=== PATIENT | male | born 1975 | race Two or more races ===

== ENCOUNTER 2017-05-02 18:29 | Inpatient (IN) | payer MEDICAID ==
[~2017-05-02] VITALS: Ht 177.8 cm; Wt 69.4 kg
[~2017-05-02 18:29] MED LIST: CEPH-357 PO; NO HOME MEDS
[2017-05-02 19:15] LABS: BASOPHILS % (AUTO) 0.3 % (0-1); EOSINOPHILS # (AUTO) 0.1 X10'3 (0-0.9); EOSINOPHILS % (AUTO) 0.7 % (0-6); HEMATOCRIT 45.7 % (42.0-52.0); HEMOGLOBIN 15.4 g/dl (14.0-17.9); LYMPHOCYTES # (AUTO) 1.9 X10'3 (1.1-4.8); LYMPHOCYTES % (AUTO) 13.5 % (21-51); MEAN CORPUSCULAR HGB CONC 33.7 % (33.0-36.5); MEAN CORPUSCULAR VOLUME 89.2 FL (78-98); MEAN PLATELET VOLUME 7.2 FL (7.4-10.4); MONOCYTES # (AUTO) 1.4 X10'3 (0-0.9); MONOCYTES % (AUTO) 10.2 % (2-12); NEUTROPHILS # (AUTO) 10.6 X10'3 (1.8-7.7); NEUTROPHILS % (AUTO) 75.3 % (42-75); PLATELET COUNT 384 X10'3 (140-440); RED BLOOD COUNT 5.13 X10'6 (4.70-6.10); RED CELL DISTRIBUTION WIDTH 13.7 % (11.5-14.5); WHITE BLOOD COUNT 14.1 X10'3 (4.5-11.0)
[2017-05-02 19:25] LABS: PROTHROMBIN TIME 10.5 SECONDS (9.0-12.0)
[2017-05-02 19:41] LABS: ALANINE AMINOTRANSFERASE 26 U/L (12-78); ALBUMIN 3.2 G/DL (3.4-5.0); ALBUMIN/GLOBULIN RATIO 0.6 (1.1-1.5); ALKALINE PHOSPHATASE 103 IU/L (46-116); AMYLASE 180 U/L (25-115); ANION GAP 6 (8-16); ASPARTATE AMINO TRANSFERASE 27 U/L (10-37); BILIRUBIN,TOTAL 0.7 MG/DL (0.1-1.0); BLOOD UREA NITROGEN 6 MG/DL (7-18); BUN/CREATININE RATIO 6.1 (5.4-32.0); CALCIUM 8.8 MG/DL (8.5-10.1); CHLORIDE 99 MMOL/L (99-107); CREATININE 0.98 MG/DL (0.60-1.10); GLUCOSE 129 MG/DL (70-104); LIPASE 975 U/L (73-393); POTASSIUM 3.8 MMOL/L (3.5-5.1); SODIUM 135 MMOL/L (135-145); TOTAL PROTEIN 8.2 G/DL (6.4-8.2); eGFR 84 ML/MIN
[2017-05-02] MEDS ORDERED: normal saline 1000ML IV soln IVB ONE (21:25)
[2017-05-02] MEDS ORDERED: HYDROmorphone 1 mg/ml syringe IV ONE ×2 (21:25→22:45)
[2017-05-02 21:47] LABS: ETHANOL < 0.010 GM/DL (0.0-0.010)
[2017-05-03] VITALS (17 sets, daily range): BP systolic 106–156; BP diastolic 69–95
[2017-05-03 00:38] LABS: CLARITY,URINE CLEAR (Clear); COLOR,URINE YELLOW (Yellow); GLUCOSE, URINE NEGATIVE (Neg); KETONES,URINE TRACE mg/dl (Neg); LEUKOCYTE ESTERASE ,URINE NEGATIVE (Neg); NITRITES, URINE NEGATIVE (Neg); OCCULT BLOOD,URINE MODERATE (Neg); PH,URINE 5.5 (4.8-8.0); PROTEIN,URINE NEGATIVE (Neg)
[2017-05-03 00:46] LABS: UA COLLECTION TYPE CLN CATCH MIDSTREAM
[2017-05-03 00:47] LABS: BACTERIA,URINE FEW /HPF (Neg); RBC,URINE 0-2 /HPF (0-2); SQUAMOUS EPITHELIAL CELL,UR FEW /LPF (FEW); WBC,URINE NONE SEEN /HPF (0-4)
[2017-05-03] MEDS: piperacillin/tazo 3.375gm/50ml 50 ML IV SCH ×4 (02:04→20:00)
[2017-05-03] MEDS ORDERED: HYDROmorphone 1 mg/ml syringe IV PRN (02:10)
[2017-05-03] MEDS ORDERED: magnesium hydroxide 30ml (MOM) UD suspension PO PRN (02:10)
[2017-05-03] MEDS ORDERED: mag hydrox/Alum hydrox/simeth 30ml oral suspension PO PRN (02:10)
[2017-05-03] MEDS ORDERED: ondansetron/PF 4mg/2ml inj IV PRN ×3 (02:10→09:10)
[2017-05-03] MEDS ORDERED: acetaminophen 325mg tablet PO PRN ×2 (02:10)
[2017-05-03] MEDS ORDERED: cloNIDine 0.1 mg tablet PO ONE (02:25)
[2017-05-03] MEDS: normal saline 1000ml 1,000 ML IV SCH ×3 (02:51→20:07)
[2017-05-03] MEDS ORDERED: BUPIVAcaine/PF 2.5 mg/ml (0.25%) 30ml vial ONE (07:46)
[2017-05-03] MEDS ORDERED: LIDOcaine 1% 30ml vial 30 ML ONE (07:46)
[2017-05-03] MEDS: HYDROmorphone 1 mg/ml syringe IV PRN ×2 (07:52→21:54)
[2017-05-03] MEDS ORDERED: piperacillin/tazo 3.375gm/50ml 50 ML IV SCH (08:00)
[2017-05-03] MEDS ORDERED: sevoflurane 250ml liquid IH ONE (08:31)
[2017-05-03] MEDS ORDERED: fentaNYL/PF 50MCG/1 ML 2ML syringe ONE ×2 (08:34→08:41)
[2017-05-03] MEDS ORDERED: propofol inj 20 ML IV ONE (08:48)
[2017-05-03] MEDS ORDERED: LIDOcaine 2% (20mg/ml) 5ml vial ONE (08:48)
[2017-05-03] MEDS ORDERED: rocuronium 10mg/ml inj IV ONE (08:48)
[2017-05-03] MEDS ORDERED: ondansetron/PF 4mg/2ml inj ONE (08:51)
[2017-05-03] MEDS ORDERED: neostigmine methylsulfate 1 MG/ML 10ml vial ONE (08:51)
[2017-05-03] MEDS ORDERED: esmolol inj. 10 ML IV ONE (08:51)
[2017-05-03] MEDS ORDERED: BUPIVAcaine/PF 2.5 mg/ml (0.25%) 30ml vial IJ ONE (08:51)
[2017-05-03] MEDS ORDERED: glycopyrrolate 0.2mg/ml inj ONE (08:51)
[2017-05-03] MEDS ORDERED: LIDOcaine 1% 30ml vial IJ ONE (08:52)
[2017-05-03] MEDS ORDERED: ringers solution, lacted 1,000 ML IV SCH ×2 (09:09)
[2017-05-03] MEDS ORDERED: meperidine/PF 25mg/ml syringe IV PRN ×6 (09:10)
[2017-05-03] MEDS ORDERED: proCHLORperazine 10 MG/2 ml inj IV PRN ×2 (09:10)
[2017-05-03] MEDS ORDERED: meperidine/PF 50mg/ml syringe ONE (09:35)
[2017-05-03] MEDS ORDERED: ipratropium/albuterol 3ml nebule IH ONE (09:55)
[2017-05-03] MEDS ORDERED: FLU VACC QS2017-18 36MOS UP/PF 60 MCG/0.5 ML SYRINGE IMVAC ONE (17:00)
[2017-05-03] MEDS: heparin, porcine 5000 units/ml vial SQ SCH (20:02)
[2017-05-04] VITALS: BP 123/74
[2017-05-04] MEDS: piperacillin/tazo 3.375gm/50ml 50 ML IV SCH ×4 (01:29→20:15)
[2017-05-04 03:31] LABS: BASOPHILS % (AUTO) 0 % (0-1); EOSINOPHILS # (AUTO) 0.2 X10'3 (0-0.9); EOSINOPHILS % (AUTO) 1.3 % (0-6); HEMATOCRIT 34.4 % (42.0-52.0); HEMOGLOBIN 11.4 g/dl (14.0-17.9); MEAN CORPUSCULAR HEMOGLOBIN 30.1 PG (27.0-31.0); MEAN CORPUSCULAR HGB CONC 33.2 % (33.0-36.5); MEAN CORPUSCULAR VOLUME 90.8 FL (78-98); MEAN PLATELET VOLUME 7.6 FL (7.4-10.4); MONOCYTES # (AUTO) 0.8 X10'3 (0-0.9); MONOCYTES % (AUTO) 6.5 % (2-12); NEUTROPHILS # (AUTO) 10.9 X10'3 (1.8-7.7); NEUTROPHILS % (AUTO) 84.2 % (42-75); PLATELET COUNT 310 X10'3 (140-440); RED BLOOD COUNT 3.78 X10'6 (4.70-6.10); RED CELL DISTRIBUTION WIDTH 13.9 % (11.5-14.5); WHITE BLOOD COUNT 12.9 X10'3 (4.5-11.0)
[2017-05-04 04:04] LABS: ALBUMIN 1.8 G/DL (3.4-5.0); ANION GAP 5 (8-16); BLOOD UREA NITROGEN 12 MG/DL (7-18); BUN/CREATININE RATIO 12.2 (5.4-32.0); CALCIUM 7.8 MG/DL (8.5-10.1); CHLORIDE 104 MMOL/L (99-107); CREATININE 0.98 MG/DL (0.60-1.10); GLUCOSE 118 MG/DL (70-104); POTASSIUM 3.7 MMOL/L (3.5-5.1); SODIUM 137 MMOL/L (135-145); TOTAL CARBON DIOXIDE 27.9 MMOL/L (24-32); eGFR 84 ML/MIN
[2017-05-04] MEDS: HYDROmorphone 1 mg/ml syringe IV PRN ×2 (06:00→17:24)
[2017-05-04] MEDS: LACTOBACILLUS RHAMNOSUS GG 15 billion unit sprinkle caps PO SCH (07:12)
[2017-05-04] MEDS: heparin, porcine 5000 units/ml vial SQ SCH ×2 (07:14→20:15)
[2017-05-04] MEDS: normal saline 1000ml 1,000 ML IV SCH ×3 (07:16→20:26)
[2017-05-04 07:56] VITALS: BP 112/74
[2017-05-04 11:52] VITALS: BP 119/83
[2017-05-04] MEDS: guaiFENesin/DM 10ml UD oral syrup PO PRN (13:32)
[2017-05-04 19:30] VITALS: BP 136/94
[2017-05-04 23:30] VITALS: BP 149/96
[2017-05-05] MEDS: piperacillin/tazo 3.375gm/50ml 50 ML IV SCH ×4 (01:32→19:57)
[2017-05-05] MEDS: HYDROcodone/acetaminophen 10/325mg tab PO PRN ×2 (01:32→18:58)
[2017-05-05] MEDS: guaiFENesin/DM 10ml UD oral syrup PO PRN (04:35)
[2017-05-05 05:20] LABS: BASOPHILS % (AUTO) 0.1 % (0-1); EOSINOPHILS # (AUTO) 0.2 X10'3 (0-0.9); EOSINOPHILS % (AUTO) 1.3 % (0-6); HEMATOCRIT 42.1 % (42.0-52.0); LYMPHOCYTES # (AUTO) 1.1 X10'3 (1.1-4.8); LYMPHOCYTES % (AUTO) 7.9 % (21-51); MEAN CORPUSCULAR HGB CONC 33.2 % (33.0-36.5); MEAN CORPUSCULAR VOLUME 90.4 FL (78-98); MEAN PLATELET VOLUME 7.8 FL (7.4-10.4); MONOCYTES # (AUTO) 0.5 X10'3 (0-0.9); MONOCYTES % (AUTO) 4.1 % (2-12); NEUTROPHILS # (AUTO) 11.5 X10'3 (1.8-7.7); NEUTROPHILS % (AUTO) 86.6 % (42-75); PLATELET COUNT 394 X10'3 (140-440); RED BLOOD COUNT 4.66 X10'6 (4.70-6.10); RED CELL DISTRIBUTION WIDTH 14.1 % (11.5-14.5); WHITE BLOOD COUNT 13.3 X10'3 (4.5-11.0)
[2017-05-05 05:51] LABS: ALBUMIN 2.4 G/DL (3.4-5.0); ANION GAP 5 (8-16); BLOOD UREA NITROGEN 5 MG/DL (7-18); CALCIUM 8.7 MG/DL (8.5-10.1); CHLORIDE 98 MMOL/L (99-107); CREATININE 1.01 MG/DL (0.60-1.10); GLUCOSE 121 MG/DL (70-104); LIPASE 84 U/L (73-393); POTASSIUM 3.3 MMOL/L (3.5-5.1); SODIUM 135 MMOL/L (135-145); TOTAL CARBON DIOXIDE 31.7 MMOL/L (24-32); eGFR 81 ML/MIN
[2017-05-05] MEDS: LACTOBACILLUS RHAMNOSUS GG 15 billion unit sprinkle caps PO SCH (07:21)
[2017-05-05] MEDS: heparin, porcine 5000 units/ml vial SQ SCH ×2 (07:22→19:57)
[2017-05-05 07:35] VITALS: BP 145/96
[2017-05-05] MEDS ORDERED: potassium Cl 20 mEq SR tablet PO STA (09:38)
[2017-05-05 11:05] VITALS: BP 138/91
[2017-05-05 11:06] VITALS: BP 146/73
[2017-05-05 19:50] VITALS: BP 146/93
[2017-05-05 23:45] VITALS: BP 126/90
[2017-05-06] MEDS: piperacillin/tazo 3.375gm/50ml 50 ML IV SCH ×2 (02:14→07:48)
[2017-05-06 05:36] LABS: BASOPHILS % (AUTO) 0.2 % (0-1); EOSINOPHILS # (AUTO) 0.3 X10'3 (0-0.9); EOSINOPHILS % (AUTO) 3.2 % (0-6); HEMATOCRIT 39.3 % (42.0-52.0); HEMOGLOBIN 13.1 g/dl (14.0-17.9); LYMPHOCYTES # (AUTO) 1.2 X10'3 (1.1-4.8); LYMPHOCYTES % (AUTO) 13.1 % (21-51); MEAN CORPUSCULAR HGB CONC 33.4 % (33.0-36.5); MEAN CORPUSCULAR VOLUME 89.9 FL (78-98); MEAN PLATELET VOLUME 7.5 FL (7.4-10.4); MONOCYTES # (AUTO) 0.6 X10'3 (0-0.9); MONOCYTES % (AUTO) 6.3 % (2-12); NEUTROPHILS # (AUTO) 7.1 X10'3 (1.8-7.7); NEUTROPHILS % (AUTO) 77.2 % (42-75); PLATELET COUNT 412 X10'3 (140-440); RED BLOOD COUNT 4.37 X10'6 (4.70-6.10); RED CELL DISTRIBUTION WIDTH 14.5 % (11.5-14.5); WHITE BLOOD COUNT 9.2 X10'3 (4.5-11.0)
[2017-05-06 06:03] LABS: ANION GAP 6 (8-16); BLOOD UREA NITROGEN 8 MG/DL (7-18); BUN/CREATININE RATIO 9.3 (5.4-32.0); CALCIUM 8.8 MG/DL (8.5-10.1); CHLORIDE 100 MMOL/L (99-107); CREATININE 0.86 MG/DL (0.60-1.10); GLUCOSE 98 MG/DL (70-104); POTASSIUM 3.5 MMOL/L (3.5-5.1); SODIUM 136 MMOL/L (135-145); TOTAL CARBON DIOXIDE 29.6 MMOL/L (24-32); eGFR > 90 ML/MIN
[2017-05-06] MEDS: heparin, porcine 5000 units/ml vial SQ SCH (07:47)
[2017-05-06] MEDS: LACTOBACILLUS RHAMNOSUS GG 15 billion unit sprinkle caps PO SCH (07:48)
[2017-05-06 08:00] VITALS: BP 153/107
[2017-05-06] MEDS ORDERED: HYDR-3972 PO (09:12)
== END 2017-05-06 09:30 | disposition home or self-care (01) | DRG 225 ==
LOC: ER 18:31 → ED HOLD 05-03 02:12 → SUR 3N 05-03 04:00
PROVIDERS: ADMIT Internal Medicine; ATTEND Surgery
PROC: 0DTJ4ZZ Resection of Appendix, Percutaneous Endoscopic Approach (ICD-10-PCS; principal; 2017-05-03 08:31)
DX: K35.2 Acute appendicitis with generalized peritonitis (principal); K85.90 Acute pancreatitis without necrosis or infection, unspecified; F17.200 Nicotine dependence, unspecified, uncomplicated; F12.90 Cannabis use, unspecified, uncomplicated; R00.0 Tachycardia, unspecified; I10 Essential (primary) hypertension; Z87.442 Personal history of urinary calculi; Z59.0 Homelessness; Z23 Encounter for immunization; Z71.6 Tobacco abuse counseling; K56.7 Ileus, unspecified
CPT/HCPCS: 36415; 74176; 80048; 80053; 80320; 81001; 82150; 83690; 85025; 85610; 87070; 94640; 94760; 96361; 96374; 96376; 99285; A6257; A7000; J1170; J1644; J2001; J2175; J2405; J2543; J2704; J2710; J3010; J3490; J7030; J7120; Q2037

== ENCOUNTER 2024-10-03 23:23 | Emergency (ER) | payer MEDICAID ==
[~2024-10-03] VITALS: Ht 177.8 cm; Wt 86.4 kg
[~2024-10-03 23:23] MED LIST changes: -CEPH-357 PO; +HYDR-3972 PO
[2024-10-03 23:25] VITALS: TEMP 99.3
--- NOTE | 2024-10-03 23:40 | Physician Documentation ---
History of Present Illness ~ Chief Complaint: Mechanical Fall Stated Complaint: FALL Time Seen by MD: 00:02 Primary Medical Doctor: [facility] HPI Additional note by Stevan Cardozo DO: I took over the care of this patient from previous physician. I reviewed any previous notes available, obtain my own history, review of systems and physical examination was performed by myself. The gentleman is a poor historian. He is a 49-year-old gentleman who smoke quite a bit of marijuana and decided to skip on rocks under the bridge when he lost balance, slipped, and fell onto the rocks striking his head and his right shoulder. He does have history of right shoulder dislocation. He reports an immediate onset headache, bleeding from the head which eventually was spontaneously controlled, and right shoulder pain and deformity. The pain and deformity of the right shoulder is similar to prior dislocation. No particular palliating factors other than position of comfort. Aggravated by range of motion of the right upper extremity. He is right-handed. Also complaints of pain in his right hand. Did not attempt to treat it. No alcohol today. Did not lose consciousness. Denies blood thinners. Denies any chest pain or difficulty breathing. Smokes marijuana denies use of alcohol or tobacco. Denies drug use Tetanus within 5 Years?: No Medication Reconciliation Allergies: Coded Allergies: No Known Allergies (Unverified , 05/02/17) Scheduled PRN Hydrocodone Bit/Acetaminophen (Hydrocodon-Acetaminophn 10-325 tablet), 1 TAB PO Q6H PRN PRN for moderate or severe pain Miscellaneous Medications Home Med List (No Home Medications), (Reported) Past Medical History Past Medical History: No Pertinent History, Kidney Stones Past Surgical History: no surgical history Alcohol Use: Occasionally Drug Use: marijuana Lives In: Homeless Review of Systems ROS Right head pain and right shoulder pain as stated above in the HPI, otherwise all systems are reviewed and negative. Physical Exam Vital Signs: Temperature: 99.3, Source: Oral, Heart Rate: 104, Respiratory Rat e: 18, BP: 151/108, Pulse Oximetry: 97, Weight: 86.360 Oxygen Flow Rate: 0 Physical Exam GENERAL: Awake, alert, oriented, GCS 15, no apparent distress, non-toxic appearing, answers questions, follows commands appropriately. HEENT: There is an approximately a 4 cm laceration to the right parietal, no active bleeding, no palpable depressed skull fracture, normocephalic, pupils equal, extraocular muscles intact, sclerae anicteric, mucus membranes moist, oropharynx is clear, no stridor. NECK: supple, full active range of motion, trachea midline, no thyromegaly, no lymphadenopathy, no JVD. CARDIOVASCULAR: regular rate/rhythm, no murmurs/gallops/rubs, Pulses are 2+ in all extremities and symmetric. Capillary refill less than 2 seconds. PULMONARY: Nonlabored, good air movement ,no respiratory distress, speaking in full sentences, clear to auscultation bilaterally, no wheezing, no ronchi, no rales, no accessory muscle use. GASTROINTESTINAL: Soft, non-tender, non-distended, normal active bowel sounds, no organomegaly, no pulsatile masses, no CVA tenderness. NEUROLOGIC: Lucid with normal mental status. Normal facial symmetry. Moves all extremities symmetrically and with purpose. No truncal ataxia. Speech is fluid without evidence of dysarthria or aphasia, no focal deficits appreciated. MUSCULOSKELETAL: There is full range of motion of all extremities. There is no joint pain or joint swelling or joint erythema. There is no muscle pain or tenderness or swelling. EXTREMITIES: warm, well-perfused, no cyanosis, no clubbing, no edema, no acute deformities. Skin: warm, dry, no rashes or lesions, no jaundice, no petechiae orpurpura. No ecchymosis. PSYCHIATRIC: Normal affect, normal insight, normal concentration. Focused exam: [There is a off this visible deformity to the right shoulder consistent with right shoulder anterior inferior dislocation. Range of motion limited by pain. Neurovascularly intact distally.] Swelling to the dorsum of the right hand over hypothenar eminence concerning for boxer's fracture Procedures Laceration Repair : Anesthesia: Lidocaine w/ Epi Prep: irrigated by nurse, scrubbed Wound Repaired With: marielena Number of Superficial Sutures: 5 (Marielena) Tolerated Procedure Well?: yes, no complications Ultrasound Procedure Note Procedural (Conscious) Sedation Authorized by:Stevan Cardozo DO Performed by:Stevan Cardozo DO Consent: Written consent obtained (see nursing note) Risks and benefits: risks, benefits and alternatives were discussed Consent given by: patient Patient understanding: states understanding of the procedure being performed Patient consent: understanding of the procedure matches consent given Patient identity confirmed: verbally with patient and arm band Time out: Immediately prior to procedure a "time out" was called to verify the correct patient, procedure, equipment, business support coordinator and site/side marked as required. Medication IV: 1 milligram/kilogram propofol for induction dose and 0.5 milligram/kilogram propofol for maintenance dose Complication: Tolerated well without complication. No hypoxic episodes. Time: Total intra-service time with patient was 25 minutes. Fracture Reduction Authorized by:Stevan Cardozo DO Performed by:Stevan Cardozo DO Consent: Verbal consent obtained. Risks and benefits: risks, benefits and alternatives were discussed Consent given by: patient and/or guardian Patient understanding: patient/guardian states understanding of the procedure being performed Patient consent: the patient/guardian's understanding of the procedure matches consent given Patient identity confirmed: verbally with patient and arm band Time out: Immediately prior to procedure a "time out" was called to verify the correct patient, procedure, equipment, business support coordinator and site/side marked as required. Location details: Right shoulder dislocation reduction was attempted multiple times during sedation as well as after sedation wore off. FARES method, Audrey t echnique scapular manipulation, and eventually Rodríguez technique allowed for successful reduction Reduction Procedure: See above Results: Post reduction alignement improved Complication: Tolerated well without complication. <2sec RN DIGESTIVE. Tendons intact. Progress Results/Orders Results/Orders Orders - STEVAN CARDOZO DO Ct Head (10/04/24 01:30) Ct Cervical Spine (10/04/24 01:30) Hand, Complete (3vw Min) (10/04/24 01:54) Shoulder Ltd 1 View Only (10/04/24 01:33) Hand, Complete (3vw Min) (10/04/24 01:55) Shoulder, Complete (Min 2 Vws) (10/04/24 03:19) Completed Orders - STEVAN CARDOZO DO Propofol Inj (Diprivan Inj) (10/04/24 00:05) Fentanyl/Pf (Fentanyl 0.05 Mg/Ml Syringe (10/04/24 00:05) Ct Head (10/04/24 01:30) Ct Cervical Spine (10/04/24 01:30) Hand, Complete (3vw Min) (10/04/24 01:54) Shoulder Ltd 1 View Only (10/04/24 01:33) Hand, Complete (3vw Min) (10/04/24 01:55) Medications Received in ER Medications (Trade) Dose Ordered Sig/Mike Route PRN Reason Start Time Stop Time Status Last Admin Dose Admin (Xylocaine 1%-EPI 1:100,000) 10 ml ONCE ONCE SQ 10/03/24 23:55 10/03/24 23:56 DC 10/04/24 00:07 10 ML ([place] 5/325mg tablet) 1 tab ONCE ONCE PO 10/04/24 00:00 10/04/24 00:01 DC 10/04/24 00:07 1 TAB (Diprivan inj) 85 mg ONCE ONCE IV 10/04/24 00:05 10/04/24 00:07 DC 10/04/24 01:13 85 MG (fentaNYL 0.05 MG/ML syringe) 50 mcg ONCE ONCE IV 10/04/24 00:05 10/04/24 00:07 DC 10/04/24 03:01 50 MCG Vital Signs 10/03/24 10/04/24 10/04/24 10/04/24 23:25 00:34 01:13 01:15 Temp 99.3 Pulse 104 88 81 83 Resp 18 12 14 14 B/P (MAP) 151/108 158/111 (127) 167/107 161/111 Pulse Ox 97 98 98 99 O2 Delivery Nasal Cannula Room Air O2 Flow Rate 0 0 2.0 0 10/04/24 10/04/24 10/04/24 10/04/24 01:25 01:28 01:32 01:35 Pulse 87 75 84 82 Resp 14 19 14 20 B/P (MAP) 161/110 (127) 152/108 (123) 153/99 (117) Pulse Ox 99 100 96 98 O2 Delivery Room Air Nasal Cannula Room Air O2 Flow Rate 0 4.0 0 0 10/04/24 10/04/24 10/04/24 10/04/24 01:45 02:00 03:01 04:19 Pulse 84 80 Resp 23 26 16 17 B/P (MAP) 151/105 (120) 146/102 (117) Pulse Ox 95 99 O2 Delivery Room Air Room Air O2 Flow Rate 0 0 Medical Decision Making Findings Facility Status: ED Holds, RME process The plan was discussed with the patient, who demonstrates clear understanding of the plan and is in agreement with the plan unless otherwise noted in the chart. All questions have been answered, all concerns were addressed unless otherwise documented. I was available throughout their ED stay for frequent reassessment and questions. Differential Diagnoses (considered and possible or likely): [Fall, acute traumatic pain, closed head injury, concussion, subdural, subarachnoid, cervical spine fracture or subluxation, facial fracture, right shoulder dislocation versus fracture versus contusion, right hand fracture versus contusion, scalp laceration] ??Differential Diagnoses (considered and unlikely, not requiring evaluation currently): [Unlikely to represent intrathoracic injury or intra-abdominal injury] MDM Data Please see [facility] for the following: Independent Historians and external Records Review. Historian: [Patient] Independent Historians: ?[None] Medication Management: [Reviewed medication list] Social History and determinants: [Reviewed] Please see the body of the note for the following: Any independent interpretations of ECG, imaging studies. All vitals signs/haemodynamics, ordered tests were independently reviewed and interpreted by myself. Nursing triage complaint and vitals reviewed, additional nursing notes were reviewed as available and I agree unless otherwise noted or documented in contradiction in the chart Vital Signs: Independently reviewed Labs: Independently interpreted Imaging: Independently interpreted Old Medical Records: Independently reviewed, see [facility] for relevant summary and information Pulse Oximetry: [95%] interpreted as [normal on room air] by me [Film And Video Graphics Designer: [Regular Rate, Regular rhythm, no ectopy, NSR] reviewed and interpreted by me] Additionally notably showing: [Hemodynamically stable. X-ray confirmed anterior dislocation. CT head showed no acute intracranial bleed, laceration noted. CT C-spine shows no fracture or subluxation.] Tests considered but not ordered include: [Hematologic workup has been considered but does not appear to be necessary given mechanical nature of the injury.] Social Determinants of Health Impact: Patient was evaluated in [facility], [facility] [place] to healthcare due to below par ratio of patient to medical providers. [] Comorbid Conditions Impacting Present Evaluation and Care/Treatment: [Marijuana use] Management Discussions with other Healthcare Providers: [None] Treatment and Disposition Medication Management (Given or considered): [Pain management, sedation management]. See EMR for details Consideration for Hospitalization/Escalation/Deescalation of Care: Admission for observation has been considered, [however the patient is able to tolerate p.o., their symptoms are controlled, they are able to rely on oral medications, and their chief complaint/diagnosis can be managed on outpatient basis.] ?ED Course:?[Initial sedation for dislocation reduction was performed, see separate note. The reduction attempts were not successful despite using multiple techniques. Actually the dislocation was reduced with weights method with some scapular manipulation after administration of fentanyl for pain relief. Surprisingly, there is no boxer's fracture per radiology read however on my independent review there is boxer's fracture. We will place patient in a splint.] ?Shared decision making:?[Patient is hemodynamically stable for discharge home with follow with their primary care provider. [ ] Specific and cautious return precautions provided and discussed with full understanding. Any incidental findings were also discussed and follow up recommendations given. [] All questions answered. Patient/family were able to verbalize back return precautions. Patient/family agree to plan. Copies of imaging and laboratory studies were provided.] Code status:?FULL Please see the full Electronic Medical Record for full details of nursing documentation, medications list, other records of complete past medical history and conditions, vital signs, laboratory studies, and any radiologic study interpretations by radiologists. Portions of this note were completed using [employer] dictation software and as a result there may exist minor errors in spelling. I have reviewed elements of past family and social history and agree as included in note. Departure Disposition: 01 HOME / SELF CARE / HOMELESS Impression: Primary Impression: Fall Additional Impressions: Anterior dislocation of right shoulder Acute pain due to trauma Concussion Scalp laceration Contusion of right hand Boxers fracture Condition: Improved Discharge Instructions: Boxer's Fracture, Concussion, Adult, Laceration Care, Adult, Shoulder Dislocation Additional Instructions: Please follow-up with the orthopedic surgeon of your choice for your recurrent right shoulder dislocation. Referrals: NO PRIMARY CARE PROVIDER (PCP) Education Educated: Patient Educated regarding: diagnosis, treatment, prognosis, need for follow up Additional Comment Medical Screen Exam History: This is a 49-year-old male who presents with right and shoulder pain, and right lateral head pain and laceration after falling while walking on some rocks striking his right shoulder and head, patient reports no loss of consciousness and reports no use of blood thinners. Patient reports no vomiting after head injury. Patient reports tetanus shot in the past five years. Exam: VITALS: Reviewed and as above. GENERAL: Alert, nontoxic appearing, no apparent distress. HEENT: PERRLA, EOMI, approximately 4 cm laceration to the lateral aspect of right scalp RESPIRATORY: No increased work of breathing, no respiratory distress, speaking in full clear sentences MUSCULOSKELETAL: No obvious deformity to right upper arm, tenderness to palpation to upper right arm and anterior shoulder, no tenderness to palpation to right clavicle MSE performed in triage and patient returned to ED lobby by nursing staff The note accurately reflects work and decisions made by me.LENNIE Perez 10/03/24 23:42 Signature Scribe Signature: No scribe Attestation: This note accurately reflects clinical decisions, work performed by myself, DO GIULIANO Tiwari [facility] Oct 03, 2024 23:40 STEVAN CARDOZO DO Oct 04, 2024 04:29
[2024-10-04] MEDS: LIDOcaine 1% W/epiNEPHrine 1:100,000 20ml vial SQ ONE (00:07)
[2024-10-04] MEDS: HYDROcodone/acetaminophen 5mg/325mg tablet PO ONE (00:07)
[2024-10-04] MEDS: propofol 10mg/ml 20ml vial IV ONE (01:13)
--- NOTE | 2024-10-04 01:23 | RADIOLOGY REPORT ---
CLINICAL INDICATION: Fall with arm pain RIGHT TECHNIQUE: DI HUMERUS (2VWS), DI SHOULDER, COMPLETE (MIN 2 VWS) Comparison: None FINDINGS/IMPRESSION: : Anterior and inferior subluxation of the humeral head with respect of the glenoid process of the scap jacky. No evidence of fracture. Moderate hypertrophic acromioclavicular arthropathy. The visualized portions of the right lung are clear. The ribs are normal in appearance.
--- NOTE | 2024-10-04 02:14 | RADIOLOGY REPORT ---
CLINICAL INDICATION: fall, pain and swelling LEFT TECHNIQUE: DI HAND, COMPLETE (3VW MIN) Comparison: None FINDINGS/IMPRESSION: : There is no evidence of acute fracture or dislocation. Soft tissues are unremarkable.
--- NOTE | 2024-10-04 02:15 | RADIOLOGY REPORT ---
CLINICAL INDICATION: RIGHT HAND PAIN S/P FALL TECHNIQUE: DI HAND, COMPLETE (3VW MIN) Comparison: None FINDINGS/IMPRESSION: : Contraction of the hand and digits limits evaluation. There is no evidence of acute fracture or dislocation. Soft tissues are unremarkable.
--- NOTE | 2024-10-04 02:24 | RADIOLOGY REPORT ---
CLINICAL INDICATION: post likely unsuccessful reduction TECHNIQUE: HÉCTOR SHOULDER LTD 1 VIEW ONLY Comparison: None FINDINGS/IMPRESSION: : Anterior and inferior subluxation of the humeral head with respect to the glenoid process of the scap jacky. No evidence of fracture. Moderate hypertrophic acromioclavicular arthropathy noted. Soft tissues are unremarkable.
--- NOTE | 2024-10-04 02:25 | RADIOLOGY REPORT ---
EXAM: CT CT HEAD INDICATION: fall, head strike TECHNIQUE: CT of the head without intravenous contrast. Radiation Dose : 1. Head: CT Dose: CTDI volume is 61.32 mGy. Dose-length product is 1156.72 mGy*cm The dose indicators for CT are the volume Computed Tomography (CT) Dose Index (CTDIvol) and the Dose Length Product (DLP), and are measured in units of mGy and mGy-cm, respectively. These indicators are not patient dose, but values generated from the CT scanner acquisition factors. The report includes radiation exposure data for exposures received during this examination. COMPARISON: None FINDINGS: There is no evidence of acute intracranial hemorrhage, extra-axial collection, mass effect, midline s hift, herniation or hydrocephalus. The ventricles, sulci and cisterns are age appropriate. The caba-white differentiation is intact. The visualized paranasal sinuses and mastoid air cells are clear. Moderate right parietal scalp soft tissue swelling and edema with laceration. The surrounding soft ti ssues and osseous structures are otherwise unremarkable. IMPRESSION: 1. No acute intracranial abnormality. 2. Moderate right parietal scalp soft tissue swelling and edema with laceration. Radiation optimization: All CT scans at this facility use at least one of these dose optimization ashwini hniques: automated exposure control mA and/or kV adjustment per patient size (includes targeted exam s where dose is matched to clinical indication) or iterative reconstruction.
--- NOTE | 2024-10-04 02:42 | RADIOLOGY REPORT ---
EXAM: CT CT CERVICAL SPINE HISTORY: fall, head strike COMPARISON: None CTDIvol 24.25 mGy, DLP 492.36 mGy*cm. TECHNIQUE: Multiple axial CT images of the spine were obtained using bone algorithm. Axial and coron al reformatting was done. Bone and soft tissue windows were reviewed. FINDINGS: There is loss of normal cervical lordosis. No CT evidence of definite acute fracture, spinal dislocation, or significant appearing acute subluxa tion is seen. The visualized paraspinal soft tissues are grossly unremarkable. Degenerative changes of the cervical spine include moderate to severe disc height loss at the C4-C5 t hrough C6-C7 levels with adjacent endplate sclerosis and anterior osteophytosis. Moderate multilevel bilateral facet hypertrophy is noted. IMPRESSION: 1. No definite CT evidence of acute fracture or dislocation of the bony cervical spine. 2. Degenerative change of the cervical spine.
[2024-10-04] MEDS: fentaNYL/PF 50MCG/1 ML 2ML syringe IV ONE (03:01)
--- NOTE | 2024-10-04 04:53 | RADIOLOGY REPORT ---
CLINICAL INDICATION: POST REDUCTION TECHNIQUE: 2 right DI SHOULDER, COMPLETE (MIN 2 VWS) Comparison: DI SHOULDER, COMPLETE (MIN 2 VWS) on DOS: 10/03/24 FINDINGS/IMPRESSION: : There is no evidence of acute fracture or dislocation. Soft tissues are unremarkable.
[2024-10-04 05:31] VITALS: BP 139/95; PULSE 73; RESP 15; O2SAT 96
== END 2024-10-04 05:32 | disposition home or self-care (01) ==
LOC: ER 23:24
DX: S01.01XA Laceration without foreign body of scalp, initial encounter (principal); S06.0XAA Concussion with loss of consciousness status unknown, initial encounter; S60.221A Contusion of right hand, initial encounter; S43.014A Anterior dislocation of right humerus, initial encounter; G89.11 Acute pain due to trauma; F12.90 Cannabis use, unspecified, uncomplicated; Z59.00 Homelessness unspecified; W01.0XXA Fall on same level from slipping, tripping and stumbling without subsequent striking against object, initial encounter; Y93.01 Activity, walking, marching and hiking; Y92.89 Other specified places as the place of occurrence of the external cause; Y99.8 Other external cause status
CPT/HCPCS: 12002; 23650; 70450; 72125; 73020; 73030; 73060; 73130; 99152; 99285; J2704; J3010; J3490; J7030; 94760; 96374; A4565; A4620; A6449

== ENCOUNTER 2024-10-06 17:35 | Emergency (ER) | payer MEDICAID ==
[~2024-10-06] VITALS: Ht 177.8 cm; Wt 85.5 kg
[2024-10-06 17:52] VITALS: BP 133/100; PULSE 81; RESP 16; O2SAT 99
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
[2024-10-06] MEDS ORDERED: ACET-1025 PO (20:35)
[2024-10-06] MEDS ORDERED: SULF1TAB49 PO (20:35)
[2024-10-06] MEDS ORDERED: IBUP-1986 PO (20:35)
[2024-10-06 20:43] VITALS: TEMP 98
[2024-10-06] MEDS: sulfamethoxazole/trimethoprim DS (800/160mg) tablet PO STA (20:50)
[2024-10-06] MEDS: ibuprofen tablet 400 MG TABLET PO STA (20:50)
== END 2024-10-06 20:53 | disposition home or self-care (01) ==
LOC: ER 17:36
DX: R59.0 Localized enlarged lymph nodes (principal); L08.9 Local infection of the skin and subcutaneous tissue, unspecified; M54.2 Cervicalgia; F12.90 Cannabis use, unspecified, uncomplicated; Z59.00 Homelessness unspecified; Z87.442 Personal history of urinary calculi; Z72.89 Other problems related to lifestyle
CPT/HCPCS: 99283